=== PATIENT | female | born 1975 | race Caucasian/White ===

== ENCOUNTER → 2021-06-27 | Day surgery (SDC) | payer OTHER ==
[~2021-06-27] VITALS: Ht 167.6 cm; Wt 77.1 kg
[~2021-06-27] MED LIST: BLISOVI 24 FE1 EACH PO; DEPO-TESTO200 MG/1 M IJ; FLUTICASONE P15.8 ML; FOLIC ACID1 M1 PO; KETOROLAC TROME10 MG PO; LISINOPRIL-HCT1 EAC1 PO; ZANTAC150 MG PO
[2021-06-27 07:27] LABS: HCT 42.1 % (37.0-47.0); HGB 13.7 g/dl (12.5-16.0); MCH 28.2 pg (25.0-31.0); MCHC 32.5 g/dL (32.0-36.0); MCV 86.6 fL (78.0-100.0); MPV 9.2 fL (6.0-9.5); RBC 4.86 M/uL (4.20-5.40); RDW 13.2 % (11.5-14.0); WBC 8.6 K/uL (4.0-10.5)
[2021-06-27 07:28] LABS: HCG (URINE) SCREEN NEGATIVE (NEGATIVE)
== END | disposition home or self-care (01) ==
LOC: FAS 06:17
PROVIDERS: Specialist
DX: N87.0 Mild cervical dysplasia (principal); R87.810 Cervical high risk human papillomavirus (HPV) DNA test positive; I10 Essential (primary) hypertension; Z91.030 Bee allergy status; Z79.899 Other long term (current) drug therapy
CPT/HCPCS: 36415; 84703; J0690; J1100; J1885; J2250; J2405; J2704; J3010; J7120